=== PATIENT | female | born 1945 | race Caucasian/White ===

== ENCOUNTER 2016-12-05 16:04 | Inpatient (IN) ==
[2016-12-05] MEDS ORDERED: ZOFRAN ODT PO ONE (16:25)
[2016-12-05 16:35] LABS: MANUAL DIFF NEEDED? NO
[2016-12-05 16:40] LABS: BASO% 0.2 % (0.0-0.8); EOS# 0.05 X1000 (0.0-0.7); EOS% 0.4 % (0.0-10.0); HEMATOCRIT 40.7 % (37.0-47.0); HEMOGLOBIN 13.9 g/dL (12.0-16.0); IMM GRAN# 0.03 X1000 (0.0-0.04); IMM GRAN% 0.2 % (0.0-0.5); LYMPH# 2.99 X1000 (1.2-3.4); LYMPH% 23.7 % (20.5-51.1); MCH 28.1 PG (27-31); MCHC 34.2 g/dL (33-37); MCV 82.4 FL (81-99); MONO# 0.69 X1000 (0.11-0.59); MONO% 5.5 % (1.7-9.3); MPV 9.8 FL (7.4-10.4); PLT 339 X1000 (130-400); RBC 4.94 XMIL (4.2-5.4)
[2016-12-05 16:54] LABS: INR 1.05; PROTIME 11.1 Seconds (9.2-11.7); PTT 24.3 Seconds (22.0-36.0)
[2016-12-05 17:02] LABS: POTASSIUM 3.7 mmol/L (3.5-5.1); TOTAL BILIRUBIN 0.44 mg/dL (0.20-1.00); TOTAL PROTEIN 8.1 g/dL (6.3-8.3)
[2016-12-05] MEDS ORDERED: SODIUM CHLORIDE 0.9% INJ ONE (17:47)
[2016-12-05] MEDS ORDERED: NS 1,000 ML IV ONE (17:47)
[2016-12-05] MEDS ORDERED: PHENERGAN IV ONE (17:47)
--- NOTE | 2016-12-05 18:09 | PROVIDER DOCUMENTATION ---
This chart was entered by Angle Key Scribe, acting as scribe for Se Jimenez MD. HPI-General Adult - General Chief Complaint: Return/Recheck Stated Complaint: SENT BY MD FOR EKG Time Seen by Provider: 12/05/16 16:07 Source: patient Allergies/Adverse Reactions: Patient Allergies Allergy/AdvReac Type Severity Reaction Status Date / Time Penicillins Allergy Severe HIVES Verified 12/05/16 16:18 Home Medications: Home Medication List Medication Instructions Recorded Confirmed Last Taken Type Amlodipine Besylate [Amlodipine 1 tab PO DAILY 12/03/16 12/05/16 12/02/16 History Besylate] Atenolol [Atenolol] 1 tab PO DAILY 12/03/16 12/05/16 12/02/16 History Enalapril Maleate [Enalapril 1 tab PO DAILY 12/03/16 12/05/16 12/02/16 20:00 History Maleate] Fenofibrate [Tricor] 1 tab PO DAILY 12/03/16 12/05/16 12/02/16 History Levothyroxine [Synthroid] 1 tab PO DAILY 12/03/16 12/05/16 12/02/16 History Metformin HCl 1 tab PO BID 12/03/16 12/05/16 12/02/16 20:00 History Omeprazole [Prilosec] 20 mg PO DAILY #30 capsule 12/03/16 12/05/16 12/03/16 12: 00 Rx Ondansetron [Zofran Odt] 8 mg PO Q8H PRN #10 tab.rapdis 12/03/16 12/05/16 12:00 Rx Sucralfate [Carafate] 1 gm PO AC + HS #60 tablet 12/03/16 12/05/16 12/03/16 12: 00 Rx Tramadol [Ultram] 50 mg PO Q6H PRN PRN #20 tablet 12/03/16 12/05/16 12/03/16 12: 00 Rx - History of Present Illness -Gen Adult Nature of Presenting Problems: 71 y/o F presents to ED cc of nauseas and dry heaving x 1 week. Pt has not vomited since Friday. Pt was seen here on the and has discharged home to follow up with GI. Pt followed up with GI and Dr. Huntley sent to ED today to rule out cardiac. Dr. Huntley requested EKG and labs. Pt denies any SOB/CP. Pt is alert and in no distress. Location of Pain/Injury: reports: none Pain Radiation: reports: no radiation Quality of Pain: reports: none Severity: reports: mild Onset/Duration: reports: gradual (x 1 week) Timing: reports: still present Context/Activities at Onset: reports: light activity Modifying Factors: improves with: nothing Associated Symptoms: reports: nausea, vomiting (dry heaving). denies: arm pain , chest pain, cough, diarrhea, dizziness, fever/chills, muscle aches, seizure, shortness of breath, weakness Similar Symptoms Previously?: No Recently seen or treated by another doctor?: No Review of Systems - Adult - REVIEW OF SYSTEMS - ADULT Constitutional: denies: chills, fever Ears, Nose, Mouth & Throat: denies: ear pain, nose pain, loose teeth, throat pain Respiratory: denies: cough, pleurisy, shortness of breath, wheezing Gastrointestinal: reports: nausea, vomiting (dry heaving). denies: abdominal pain, diarrhea Genitourinary: denies: discharge, hematuria, hesitency, urgency Musculoskeletal: denies: bone pain, joint pain, joint swelling, neck pain Neurological: denies: dizziness/vertigo, headache/migraines, seizure, slurred speech Past History - Adult - PAST MEDICAL HISTORY-ADULT Review of Records: reports: Old Records Reviewed, Nursing Assessment Review Cardiovascular: reports: HTN, hyperlipidemia Neurological: reports: Seizures/Epilepsy Endocrine/Immune: reports: Diabetes - IMMUNIZATION STATUS Childhood Immunizations: See Nurse Assessment Flu Vaccine: See Nurse Assessment - SOCIAL HISTORY Smoking: denies, non-smoker Substance Use: none/never, denies Physical Exam-General - PHYSICAL EXAM-ADULT Initial Vital Signs Reviewed: Yes - CONSTITUTIONAL General Appearance: appears well, alert, no apparent distress - EYES Eyes: pink conjunctivae - HEAD, EARS, NOSE, MOUTH & THROAT HENMT: normocephalic/atraumatic, moist mucous membranes, normal ENT inspection - NECK Neck: non-tender, full range of motion, supple - RESPIRATORY Respiratory: chest non-tender, lungs clear, normal breath sounds - CARDIOVASCULAR Cardiovascular: normal peripheral pulses, tachycardia - GASTROINTESTINAL (ABDOMEN) Abdominal Exam: normal bowel sounds, non tender, soft - LYMPHATIC Lymphatic: no adenopathy - MUSCULOSKELETAL Back Exam: normal inspection, no CVA tenderness, no vertebral tenderness Extremity: normal range of motion, non-tender, normal gait - SKIN Integumentary: normal color, normal turgor, warm/dry - NEUROLOGIC Neurologic: grossly normal, no motor/sensory deficits - PSYCHIATRIC Psych/Mental Status: oriented x 3 Progress - PLAN OF CARE/RESULTS Progress/Plan/Lab Results: Vital Signs - 8 hr 12/05/16 16:12 Temperature 97.8 F Pulse Rate 93 H Respiratory Rate 20 Blood Pressure 161/78 O2 Sat by Pulse Oximetry 100 Orders Category Date Time Status CBC WITH ELECTRONIC DIFF [HEME] Stat Lab 12/05/16 16:21 Results CK PROFILE [SP CHEM] Stat Lab 12/05/16 16:21 Received COMPREHENSIVE METABOLIC PANEL [CHEM] Stat Lab 12/05/16 16:21 Received PROTIME WITH INR [COAG] Stat Lab 12/05/16 16:21 Received PTT [COAG] Stat Lab 12/05/16 16:21 Received TROPONIN T Stat Lab 12/05/16 16:21 Received TSH Stat Lab 12/05/16 16:21 Received Ondansetron Odt [Zofran Odt] Med 12/05/16 16:25 Discontinued 4 mg PO NOW ONE EKG [EKG] Stat Ther 12/05/16 16:07 Ordered [PLAN: EKG , LABS , TREAT NAUSEA REQUESTED LABS AND EKG . IF ALL NORMAL PT WILL BE SENT HOME WITH MEDICATIONS - CIPRO, ZOFRAN AND DIET Result Diagrams: 12/05/16 16:21 12/05/16 16:21 - REASSESSMENT Reassessment #1 Time Reassessed: 16:45 Status: unchanged (Pt is still dry heaving and nauseated. Aware of admission.) - CONSULTS/PCP/HOSPITALIST Notification #1 *Consult/PCP/Hospitalist*: (hospitalist) Time Discussed: 17:59 Consult Disposition: Admit #2 Consult: Dr. Huntley Time Discussed: 18:01 Consult Disposition: other (Requested follow up of results) Departure - Departure Date of Disposition Decision: 12/05/16 Time of Disposition Decision: 17:34 DIAGNOSIS: Renal insufficiency, Nausea, Leukocytosis Disposition: ADMITTED INPATIENT 09 Certified Medical Emergency: Emergent Condition: Good Additional Freetext Instructions: ED Follow Up Instructions: You have been treated by a care provider in the Emergency Department. These instructions are being provided to you so you can have an understanding of how to care for yourself upon discharge. Upon discharge from the Emergency Department, you are responsible for making arrangements for follow-up care by a physician of your choice. Take all prescribed medications as directed. Return to the Emergency Department immediately for any new or worsening symptoms. You may call the Physician Referral phone number at [phone] to obtain a list of Physicians who are taking new patients. Referrals and Follow-Ups: Inderjit Guerra MD [Primary Care Provider] - - Critical Care Note This patient required my direct & personal management of CC.: No This chart was documented by the indicated scribe, (Angle Key Scribe) and accurately reflects the services I performed and decisions made by me, Se Jimenez MD, as attested by the provider's signature.
--- NOTE | 2016-12-05 21:27 | HISTORY AND PHYSICAL ---
PRIMARY CARE PROVIDER: Dr. Inderjit Guerra. CHIEF COMPLAINT: Nausea and vomiting. HISTORY OF PRESENT ILLNESS: This is a 71-year-old female who presented to the emergency room after seeing Dr. Huntley from GI. She was apparently seen here for an EKG. She had been to the emergency room 3 times I believe in the last week for nausea and vomiting. She was sent to follow up with GI which she did and Dr. Huntley felt that the patient needed cardiac ruled out prior to having any type of endoscopy. She has had nausea, vomiting, dry heaving. She denies any type of chest pain, shortness of breath, palpitations. She does have a past medical history of hypothyroidism, hyperlipidemia, hypertension and diabetes mellitus type 2. Other than a continued complaint of nausea, vomiting, and dry heaving, the patient has no complaints at this time. She does not complain of chest pain, no abdominal pain. She will be admitted to the medical floor for further evaluation and treatment. PAST MEDICAL HISTORY: 1. Diabetes mellitus type 2. 2. Hyperlipidemia. 3. Hypertension. 4. Seizure disorder. 5. Hypothyroidism. PAST SURGICAL HISTORY: 1. Hysterectomy. 2. Neck surgery. 3. Oophorectomy. 4. Hemorrhoidectomy. SOCIAL HISTORY: Lives at home. Denies tobacco, alcohol or illicit drug use or abuse. She is . FAMILY HISTORY: Mother had coronary artery disease. at age 88. Father had hypertension. Also hypertension was noted in some siblings. ALLERGIC: Penicillin causing hives. HOME MEDICATIONS: 1. TriCor 1 tablet p.o. daily. 2. Ultram 50 mg p.o. q.6 p.r.n. 3. Enalapril 1 tablet p.o. daily. 4. Metformin 850 mg p.o. b.i.d. 5. Atenolol 50 mg p.o. daily. 6. Synthroid 75 mcg p.o. daily. 7. Amlodipine 1 tablet p.o. daily. 8. Carafate 1 g p.o. q.a.c. and at bedtime. 9. Prilosec 20 mg p.o. daily. 10. Zofran 8 mg p.o. q.8 p.r.n. REVIEW OF SYSTEMS: Fourteen point review of systems conducted with the patient. Pertinent positives listed above in the HPI. All other systems reviewed and found to be negative. PHYSICAL EXAMINATION: VITAL SIGNS: Temperature 97.8 degrees, pulse 93, respirations 20, blood pressure 161/78, oxygen saturation 100% on room air. GENERAL: A very pleasant 71-year-old female, lying in the ER stretcher. No acute distress. Answers all questions appropriately. HEENT: Head is atraumatic, normocephalic. Pupils equal, round, react to light. Extraocular eye movement intact. Sclerae is anicteric. Conjunctivae is pink. Oral mucosa is dry and tacky, lips are chapped. NECK: Supple. Trachea is midline. No JVD. No thyromegaly. CARDIAC: Regular rhythm, S1-S2 appreciated. No murmurs, gallops, rubs. LUNGS: Clear to auscultation bilaterally. No rhonchi, wheezes or rales. ABDOMEN: Soft, nondistended, nontender. Bowel sounds present in all 4 quadrants. Normoactive. No pulsatile mass. No organomegaly. EXTREMITIES: No clubbing, cyanosis, or edema. 2+ pedal pulses bilaterally. GENITOURINARY: The patient voids. Otherwise deferred. NEUROLOGICAL: Alert and oriented x3. Cranial nerves 2-12 grossly intact. SKIN: Warm dry and intact. No acute lesions or rash. DIAGNOSTIC DATA: EKG shows normal sinus rhythm. LABORATORY DATA: WBC 12.62, hemoglobin 13.9, hematocrit 40.7, platelet count 339,000. Coags within normal limits. Sodium 140. Potassium 3.7, chloride 96, carbon dioxide 23, BUN 28, creatinine 1.7, glucose 189. AST 39, ALT 26. ASSESSMENT AND PLAN: 1. Intractable nausea and vomiting. We will reconsult Dr. Huntley who sent the patient over for cardiac evaluation. The patient has mild elevations in liver functions. We will over right upper quadrant ultrasound. Patient still has her gallbladder. Other differentials to consider for nausea and vomiting are gastroparesis that the patient is a known diabetic. 2. Acute kidney injury. This is likely related to the patient's poor intake. We will hold her RACHELE inhibitor. Related elevated BUN and creatinine we will hold her Carafate for fear of aluminum toxicity. We will hold her Ultram as it is known to lower your seizure threshold and the patient is known to have a seizure disorder. 3. Hypothyroidism. Check thyroid stimulating hormones. Continue Synthroid. 4. Hyperlipidemia. Continue TriCor. 5. Cardiac, rule out. Trend cardiac enzymes. We will order EKG in a.m. We will order echocardiogram. We will consult Dr. Tolu brennan who is operational communication chief for Cardiology. 6. Hypertension. Continue Norvasc and atenolol. Further recommendations per patient clinical course. Dictated by ROHITH Montes De Oca for Jacob Kirby MD cc: ROHITH Montes De Oca MD Malcolm R. Hendricks, MD Khurshid Yousuf, MD
[2016-12-05] MEDS ORDERED: TYLENOL PO PRN (21:40)
[2016-12-05] MEDS: ZOFRAN IV PRN (22:05)
[2016-12-05] MEDS: TENORMIN PO SCH (22:05)
[2016-12-05 22:40] LABS: HEMOGLOBIN A1C 6.3 % (4.8-6.0)
[2016-12-06] MEDS: NORVASC PO SCH ×2 (01:24→09:18)
[2016-12-06] MEDS: TENORMIN PO SCH ×2 (01:24→09:18)
[2016-12-06] MEDS: PRILOSEC PO SCH ×2 (05:27→06:05)
[2016-12-06] MEDS: ZOFRAN IV PRN ×2 (05:27→20:13)
[2016-12-06] MEDS: SYNTHROID PO SCH ×2 (05:27→06:05)
--- NOTE | 2016-12-06 06:12 | EKG Report ---
Test Performed on : 12/06/2016 05:10:07 AM Test Reason : rhythm eval Blood Pressure : / mmHG Vent. Rate : 066 BPM Atrial Rate : 066 BPM P-R Int : 154 ms QRS Dur : 090 ms QT Int : 426 ms P-R-T Axes : 028 030 022 degrees QTc Int : 446 ms Normal sinus rhythm. Nonspecific T wave abnormality Abnormal ECG When compared with ECG of 05-DEC-2016 16:15, (Unconfirmed) No significant change was found Confirmed by Gideon Sewell MD ([id number]) on 12/06/2016 1:02:34 PM
[2016-12-06 06:37] LABS: MANUAL DIFF NEEDED? NO
[2016-12-06 06:40] LABS: BASO% 0.3 % (0.0-0.8); EOS# 0.19 X1000 (0.0-0.7); EOS% 1.9 % (0.0-10.0); HEMATOCRIT 40.8 % (37.0-47.0); HEMOGLOBIN 13.9 g/dL (12.0-16.0); IMM GRAN# 0.02 X1000 (0.0-0.04); IMM GRAN% 0.2 % (0.0-0.5); LYMPH# 3.49 X1000 (1.2-3.4); LYMPH% 34.8 % (20.5-51.1); MCHC 34.1 g/dL (33-37); MCV 82.3 FL (81-99); MONO# 0.75 X1000 (0.11-0.59); MONO% 7.5 % (1.7-9.3); MPV 9.7 FL (7.4-10.4); NEUT% 55.3 % (42.2-75.2); PLT 275 X1000 (130-400); RBC 4.96 XMIL (4.2-5.4)
[2016-12-06 08:08] LABS: CALCIUM 9.6 mg/dL (8.8-10.2); POTASSIUM 3.4 mmol/L (3.5-5.1)
[2016-12-06] MEDS: TRICOR PO SCH (09:18)
[2016-12-06] MEDS ORDERED: XYLOCAINE-MPF 2% ONE (10:07)
[2016-12-06] MEDS ORDERED: DIPRIVAN 1% ONE (10:07)
[2016-12-06] MEDS: ANTIVERT PO SCH ×2 (13:10→20:13)
[2016-12-06] MEDS ORDERED: NS 1,000 ML IV SCH (13:24)
[2016-12-06 13:38] LABS: AMYLASE 41 U/L (20-200); LIPASE 26 U/L (13-60)
[2016-12-06] MEDS: 1/2 NS 1,000 ML IV SCH (13:55)
--- NOTE | 2016-12-06 14:30 | PROGRESS NOTE ---
DATE: 12/06/2016 SUBJECTIVE: Patient states that she feels better. She denies any chest pain, shortness of breath, palpitations. Denies any abdominal pain. States that she has had one episode of nausea in the last 24 hours. No active vomiting. She also reports that she ate her lunch tray of liquid diet and has felt fine since she ate. OBJECTIVE: Vital Signs: Blood pressure 141/69, heart rate 71, respiratory 17. She is afebrile at 98.4, O2 site 96% on room air. General Appearance: Ms. Humphrey is a 71-year-old , female, who appears well nourished and is able to answer questions appropriately. Neuro: She is alert and oriented x4. No deficits there. CV: S1, S2 auscultated. Rate and regular rhythm. No murmurs, gallops noted. Pulmonary: Lung sounds equal and clear throughout with equal chest excursion. No wheezes, rhonchi, or crackles noted. GI: Active bowel sounds in all 4 quadrants. Patient's right lower quadrant pain was noted upon palpation. Extremities: +2 pedal and radial pulses throughout. No edema, bruises, rashes noted. LABORATORY DATA: White count 10, hemoglobin 13, hematocrit 40, platelets 275, 000. Sodium 143, potassium 3.4, chloride 101, bicarb 27. BUN 24, creatinine 1.4 and glucose 105. ASSESSMENT AND PLAN: 1. Nausea and vomiting. The patient reports she only had one nausea episode in the last 24 hours. No active vomiting. We have ordered amylase and lipase and abdomen/ pelvic CT scan. Continue IV Zofran 4 mg p.r.n. We have also ordered half-normal saline at 75 mL an hour. We have consulted GI. They will perform an EGD Friday. They are awaiting the cardiology consult on the patient. 2. Acute kidney injury. Patient's BUN and creatinine are 24 and 1.4. We have ordered half- normal saline at 75 and also put in some urine studies with urinalysis. This is most likely due to her dehydration. 3. Hypothyroidism. TSH level is 3.4. We will continue her home Synthroid. 4. Hyperlipidemia. The patient states that she takes her Tricor at home and is followed by her primary doctor and that this has always been an issue. Her triglycerides are 412. Total cholesterol is 259 with LDL of 168 and HDL of 40. We will continue her TriCor. 5. Cardiac workup. The patient's EKG this morning showed normal sinus at 66 with a QTc of 426. We had consulted Cardiology. 6. Hypertension. Patient's blood pressure has ranged from 170s, and she is 141 systolically this morning. We are going to continue her home medications. 7. Deep Venous Prophylaxis. Continue SCD's. 8. Gastrointestinal Prophylaxis. Continue Prilosec. Dictated by ROHITH Wade for Manuel Sagastume MD cc: ROHITH Wade MD MTDD
--- NOTE | 2016-12-06 14:49 | Diag Imaging Result Doc PS360 ---
EXAM: ABDOMEN/PELVIS W/O CONTRAST HISTORY: abdominal pain; intractabel nausea/vomiting TECHNIQUE: Dose reduction protocol COMPARISON: None. FINDINGS: There is fatty infiltration of the liver. No focal hepatic abnormality identified on this noncontrasted exam. No calcified gallstones or adjacent inflammation. Normal spleen and adrenal glands. Normal noncontrasted pancreas. No renal stones. No hydronephrosis. No aortic aneurysm. Prominent atherosclerosis. No bowel obstruction. No inflammation about the cecum. No abscess. The uterus has been removed. The urinary bladder is not distended. No pelvic mass. No free air. IMPRESSION: 1.Prominent atherosclerosis 2.Fatty infiltration of the liver 3.No renal stones or hydronephrosis 4.No bowel obstruction 5.Hysterectomy Electronically signed by Raul Hoffman 12/06/2016 2:47 PM
--- NOTE | 2016-12-06 14:59 | CONSULTATION ---
DATE OF CONSULTATION: 12/06/2016 REASON FOR REFERRAL: Nausea and vomiting. HISTORY OF PRESENT ILLNESS: This is a 71-year-old, white female, who was in our office yesterday for onset of nausea and vomiting over the weekend. She had been to the emergency room for evaluation on 2 different visits and, other than a slightly elevated white blood cell count, everything was normal. She was treated symptomatically with Zofran and started on Prilosec but she continued to have symptoms. She denied fever or chills. No reported dysuria or hematuria. No reported hematemesis or coffee-ground emesis. She has had a poor appetite and has not been able to eat much and has not been able to keep much down. She has been tolerating some applesauce and crackers along with some rice. She denied significant abdominal pain or abdominal cramping. She had an ultrasound done that was negative. When she was seen in the office yesterday, there was concern that it could be cardiac in origin. She was recommended to have an EKG and cardiac enzymes and was sent to the emergency room for those tests. She ended up being admitted. She had acute kidney injury with elevated BUN and creatinine likely related to patient' s poor intake. Her RACHELE inhibitor and Carafate have been placed on hold. PAST MEDICAL HISTORY: Arthritis, diabetes, hypertension, hyperlipidemia, seizure disorder, hypothyroidism. PAST SURGICAL HISTORY: Hysterectomy, neck surgery, oophorectomy, hemorrhoidectomy. ALLERGIES: Penicillin causing hives. HOME MEDICATION: 1. Ultram 50 mg every 6 hours as needed. 2. Zofran 8 mg every 8 hours as needed. 3. Prilosec 20 mg daily. 4. Metformin 1 tablets twice a day. 5. Synthroid 1 tablet daily. 6. TriCor 1 tablet daily. 7. Enalapril 1 tablet daily. 8. Atenolol 1 tablet daily. 9. Amlodipine 1 tablet daily. 10. Carafate 1 g before meals and at night but that has been placed on hold. SOCIAL HISTORY: She lives at home. She denies tobacco, alcohol, or drug use. She is . FAMILY HISTORY: Mother had coronary artery disease and in her 80s. Father had hypertension. REVIEW OF SYSTEMS: Per HPI. PHYSICAL EXAMINATION: Vital Signs: Temperature 98.6 degrees, pulse 67, respirations 18, blood pressure 139/69. Generally, patient is awake, alert, in no acute distress. HEENT: Normocephalic, atraumatic. Pupils equal, round, reactive to light. Sclerae are nonicteric. Cardiovascular: Regular rate and rhythm. Respiratory: Lung sounds clear bilaterally. Abdomen: Soft, nontender. Positive bowel sounds. Extremities: No lower extremity edema noted. DIAGNOSTIC RESULTS: Laboratory: Hematology: White count 10.0, hemoglobin 13.9 , hematocrit 40.8, MCV 82.3, platelets 275,000. Coagulation ProTime 11.1, INR 1.05. PTT 24.3. Chemistry: Sodium 143, potassium 3.4, chloride 101, CO2 of 27. BUN 24, creatinine 1.4, glucose 105. Total bilirubin 0.44. AST 39, ALT 26, alkaline phosphatase 60. Triglycerides 412, cholesterol 259. TSH 3.40. Troponin was 0.010. Creatine kinase 152. ASSESSMENT AND PLAN: 1. Nausea and vomiting. 2. Questionable gastroenteritis. 3. History of Meniere's disease. 4. Diabetes. 5. Acute kidney injury, most likely related to her poor intake. She is receiving IV fluid resuscitation. We will repeat a CMP tomorrow. She does have a cardiology consultation. We have planned for a possible EGD today since she had been held n.p.o., but we will wait on cardiology clearance. This will be tentatively be scheduled for Friday. If she does get discharged over the weekend, we will follow up and proceed with esophagogastroduodenoscopy if needed as an out patient. I have discussed this plan with the patient and her family, and they voiced understanding. I have discussed this case with Dr. Huntley. Dictated by ROHITH Kowalski for Je Huntley MD cc: ROHITH Armstrong MD [facility]
[2016-12-06 15:20] LABS: URINE CULTURE NEEDED? NO; URINE MICRO REVIEW NEEDED? NO; URINE SOURCE CLEAN CATCH
[2016-12-06 15:29] LABS: BILIRUBIN URINE NEGATIVE (NEGATIVE); BLOOD URINE NEGATIVE (NEGATIVE); COLOR YELLOW; GLUCOSE URINE NEGATIVE (NEGATIVE); LEUKOCYTES URINE NEGATIVE (NEGATIVE); NITRITE URINE NEGATIVE (NEGATIVE); PH URINE 6.5; PROTEIN URINE NEGATIVE (NEGATIVE); SP GRAVITY URINE 1.011; TURBIDITY URINE CLEAR (CLEAR); UROBILINOGEN URINE NORMAL (NORMAL)
[2016-12-06 15:31] LABS: UR EPITHELIAL CELLS <10 /HPF (<10); URINE BACTERIA NEGATIVE /HPF; URINE RBC <10 /HPF (<10); URINE WBC <10 /HPF (<10)
--- NOTE | 2016-12-06 16:17 | CONSULTATION ---
DATE OF CONSULTATION: 12/06/2016 IMPRESSION: 1. Intractable nausea and vomiting with resultant dehydration precipitating hospitalization. 2. Mild coronary atherosclerosis by coronary angiography 7 years ago. 3. Mixed hyperlipidemia. 4. Type 2 diabetes mellitus. 5. Hypertension. RECOMMENDATIONS: 1. Patient stable from a cardiac standpoint for upper GI endoscopy which has been planned. 2. Once patient has improved from GI standpoint would consider addition of statin given the results of her most recent lipid profile. 3. Would also consider use of an angiotensin receptor blocking agent or angiotensin converting enzyme inhibitor for management of her blood pressure given that she is diabetic. HISTORY: This 71-year-old white female with past history of mild coronary atherosclerosis by coronary angiography 7 years ago, mixed hyperlipidemia, hypertension and type 2 diabetes mellitus was admitted with intractable nausea, vomiting, and dehydration. She has had at least a week long history of intractable nausea and frequent vomiting. She has visited emergency room several times and was ultimately hospitalized given failure of outpatient management to maintain hydration. She has had no chest pain. She has not started any new medications. She has had type 2 diabetes mellitus for about 3 years. She does not have peripheral neuropathy with her diabetes. PAST MEDICAL HISTORY: 1. Mild coronary atherosclerosis by coronary geography 7 years ago. 2. Hypertension. 3. Obesity. 4. Type 2 diabetes mellitus. 5. Mixed hyperlipidemia. 6. Hypothyroidism. 7. Seizure disorder. PAST SURGICAL HISTORY: Includes hysterectomy, unspecified neck surgery, oophorectomy and hemorrhoidectomy. ALLERGIES: She is allergic or intolerant to penicillin. MEDICATIONS: Prior to admission as listed. SOCIAL HISTORY: She does not smoke or use alcohol. FAMILY HISTORY: Negative for premature coronary disease. REVIEW OF SYSTEMS: Pulmonary: Negative. Gastrointestinal: Noteworthy for nausea and vomiting as noted in history of present illness. Constitutional: Negative for fever. Remainder review of systems negative/noncontributory with 14 total systems reviewed. PHYSICAL EXAM: General: This is an obese middle-aged female in no distress. Vital Signs: As recorded are stable. HEENT: Extraocular movements appear intact. Mucous membranes moist. Neck: Supple without jugular venous distention. No carotid bruits. Chest: Clear to auscultation. Cardiac Exam: Reveals a regular rate and rhythm without appreciable murmur or gallop. Abdomen: Soft, nontender. Bowel sounds normal. Extremities: Without edema. Neurologic Exam: Reveals her to be alert, fully oriented. Speech is fluent. She moves all 4 extremities equally well. Skin: Warm, dry. Psychiatric: Reveals her mood to be appropriate. DIAGNOSTIC DATA: ECG demonstrates sinus rhythm and nonspecific T-wave abnormality. cc: Hosea Valdes MD
--- NOTE | 2016-12-06 20:29 | ECHO REPORT ---
ORDER DATE: 12/06/2016 INTERPRETING PHYSICIAN: Dr. Motley REQUESTING PHYSICIAN: CLINICAL INDICATIONS: A 71-year-old male with diabetes mellitus, hypertension. M-MODE MEASUREMENTS: Right ventricle: 3.2 cm. Left ventricle end diastole: 3.3 cm. Left ventricle end systole: 2.1 cm. Posterior wall: 1.0 cm. Interventricular septum: 1.2 cm. Left atrium: 3.7 cm. Aortic root: 3.2 cm. SUMMARY OF 2-DIMENSIONAL IMAGING: The left ventricular function is normal. Ejection fraction 66%. No wall motion abnormality is noted. The chamber is not dilated. The right ventricle appears to be at the upper limits of normal. The aortic valve looks normal. Color flow mapping unremarkable. The pulmonic valve looks normal. Color flow mapping unremarkable. The tricuspid valve shows trace regurgitation. Pulmonary pressure is normal. The mitral valve looks normal with a mild degree of regurgitation. Pulse wave Doppler of mitral inflow shows reversal of the E and the A wave. Ratio is 0.7. Tissue Doppler of septal and lateral mitral annulus averages 3.5 cm per second. There is impaired left ventricular relaxation. Early diastolic dysfunction. There is no pericardial effusion, masses or thrombus. The pulmonary venous flow is normal. IMPRESSION: In summary, this study shows: 1. Normal left ventricular systolic function. 2. Early diastolic dysfunction with impaired left ventricular relaxation. 3. No evidence of any significant valvular abnormality. 4. Pulmonary pressure is normal. Clinical correlation recommended. cc: MD Michael Berry CRNP
[2016-12-07] MEDS: 1/2 NS 1,000 ML IV SCH ×2 (04:50→16:32)
[2016-12-07 06:08] LABS: MANUAL DIFF NEEDED? NO
[2016-12-07 06:22] LABS: BASO% 0.6 % (0.0-0.8); EOS# 0.27 X1000 (0.0-0.7); EOS% 2.9 % (0.0-10.0); HEMOGLOBIN 13.9 g/dL (12.0-16.0); LYMPH# 3.84 X1000 (1.2-3.4); MCH 28.5 PG (27-31); MCHC 34.8 g/dL (33-37); MONO# 0.81 X1000 (0.11-0.59); MONO% 8.6 % (1.7-9.3); MPV 10.6 FL (7.4-10.4); NEUT% 46.9 % (42.2-75.2); PLT 235 X1000 (130-400); RBC 4.88 XMIL (4.2-5.4)
[2016-12-07] MEDS: PRILOSEC PO SCH (06:35)
[2016-12-07] MEDS: SYNTHROID PO SCH (06:36)
[2016-12-07 06:37] LABS: ALBUMIN 4.4 g/dL (3.5-5.0); CALCIUM 9.5 mg/dL (8.8-10.2); POTASSIUM 3.5 mmol/L (3.5-5.1); TOTAL BILIRUBIN 0.53 mg/dL (0.20-1.00); TOTAL PROTEIN 6.9 g/dL (6.3-8.3)
[2016-12-07] MEDS: ZOFRAN IV PRN (10:10)
[2016-12-07] MEDS: ANTIVERT PO SCH ×3 (10:13→16:33)
[2016-12-07] MEDS: TRICOR PO SCH (10:13)
[2016-12-07] MEDS: NORVASC PO SCH (10:13)
[2016-12-07] MEDS: TENORMIN PO SCH (10:13)
[2016-12-07] MEDS: PRINIVIL PO SCH (13:19)
--- NOTE | 2016-12-07 14:09 | PROGRESS NOTE ---
DATE: 12/07/2016 SUBJECTIVE: Patient reports feeling fine, less nauseated and she wants to advance the diet. Currently she is on clear liquid diet. OBJECTIVE: Vital Signs: Temperature 97.7 degrees, heart rate 67, respiratory rate 20, blood pressure 163/75, O2 saturation 96% on room air. General Examination: This is a 71-year-old female lying in bed in no acute distress. HEENT: Head is normocephalic, atraumatic. Anicteric sclerae and pale conjunctivae. Mucous membranes moist. Neck: Supple. No JVD noted. No carotid bruits. No lymphadenopathy. No thyromegaly. Cardiovascular: S1, S2 heard. No murmurs, gallops, or rubs. Regular rate and rhythm. Respiratory: Clear bilaterally to auscultation. No work of breathing or using accessory muscles. Abdomen: Soft , a little bit tender to palpation in the right lower quadrant. No signs of peritoneal irritation. Bowel sounds present. No organomegaly. Extremities: No clubbing, cyanosis or edema. Peripheral pulses present in both legs. Neurological: Patient alert, oriented x3. Moves 4 extremities. Cranial nerves 2-12 grossly normal. LABORATORY DATA: The CBC is unremarkable and BMP shows creatinine 1.3. ASSESSMENT AND PLAN: 1. Intractable nausea and vomiting. That condition is resolved. Patient is feeling less nauseated and she was tolerating the liquid diet very well so she requests to have her diet increased so we are going to change it to GI soft diet. The CT of abdomen and pelvis did not show any grossly remarkable. Just fatty liver so at this point we are going to continue with same management. For this condition GI has evaluated this patient and they are going to perform EGD on Friday for this persistent nausea and epigastric pain. Dr. Huntley think that she may have a cardiac component so cardiology was consulted and they have cleared this patient so she is good to have endoscopy on Friday, no more recommendations from their standpoint. 2. Acute kidney injury. Creatinine continues to improve so at this point we are going to continue with IV fluids. 3. Hypothyroidism stable. Will continue with Synthroid. 4. Hyperlipidemia. We are going to continue with TriCor. 5. Hypertension. Blood pressure has been in the range of 150 and 163. She is on amlodipine 5, atenolol 50, on lisinopril 10 so I am going to increase the doses of lisinopril to 10 mg p.o. b.i.d. 6. Deep vein thrombosis prophylaxis with SCDs. 7. Gastrointestinal prophylaxis with Protonix. cc: Manuel Sagastume MD MTDD
[2016-12-08] MEDS: PRILOSEC PO SCH (06:14)
[2016-12-08] MEDS: 1/2 NS 1,000 ML IV SCH ×3 (06:14→18:16)
[2016-12-08] MEDS: SYNTHROID PO SCH (06:14)
[2016-12-08 06:51] LABS: MANUAL DIFF NEEDED? NO
[2016-12-08 06:55] LABS: BASO% 0.9 % (0.0-0.8); EOS# 0.26 X1000 (0.0-0.7); EOS% 2.8 % (0.0-10.0); HEMATOCRIT 38.1 % (37.0-47.0); HEMOGLOBIN 13.2 g/dL (12.0-16.0); LYMPH# 4.36 X1000 (1.2-3.4); LYMPH% 47.3 % (20.5-51.1); MCH 28.3 PG (27-31); MCHC 34.6 g/dL (33-37); MCV 81.6 FL (81-99); MONO# 0.67 X1000 (0.11-0.59); MONO% 7.3 % (1.7-9.3); MPV 10.3 FL (7.4-10.4); NEUT% 41.7 % (42.2-75.2); PLT 250 X1000 (130-400); RBC 4.67 XMIL (4.2-5.4)
[2016-12-08 07:14] LABS: CALCIUM 9.1 mg/dL (8.8-10.2); POTASSIUM 3.2 mmol/L (3.5-5.1); TOTAL BILIRUBIN 0.37 mg/dL (0.20-1.00); TOTAL PROTEIN 6.5 g/dL (6.3-8.3)
[2016-12-08] MEDS: TENORMIN PO SCH (09:13)
[2016-12-08] MEDS: PRINIVIL PO SCH (09:13)
[2016-12-08] MEDS: NORVASC PO SCH (09:13)
[2016-12-08] MEDS: ANTIVERT PO SCH ×3 (09:13→16:33)
[2016-12-08] MEDS: TRICOR PO SCH (09:13)
--- NOTE | 2016-12-08 13:00 | PROGRESS NOTE ---
DATE: 12/08/2016 SUBJECTIVE: Patient reports feeling fine. Tolerating GI soft diet very well. Not feeling nauseated anymore. OBJECTIVE: Vital Signs: Temperature 98.2 degrees, heart rate 66, respiratory 14, blood pressure 142/70. O2 saturation 98% on room air. General Examination: This is a 71-year-old female lying in bed, in no acute distress. HEENT: Head is normocephalic, atraumatic. Anicteric sclerae and pale conjunctivae. Mucous membranes moist. Neck: Supple. No JVD noted. No carotid bruits. No lymphadenopathy. No thyromegaly. Cardiovascular: S1, S2 heard. No murmurs, gallops or rubs. Regular rate and rhythm. Respiratory: Clear bilaterally to auscultation. No work of breathing or using accessory muscles. Abdomen: Soft, a little bit tender to palpation in the right upper quadrant but there are no signs of peritoneal irritation. Normal bowel sounds present. No organomegaly. Extremities: No clubbing, cyanosis, or edema. Peripheral pulses present in both legs. Neurologic: Grossly normal. LABORATORY DATA: The CBC and BMP is unremarkable. Creatinine 1.5 and potassium 3.2. ASSESSMENT AND PLAN: 1. Intractable nausea and vomiting. That condition is almost resolved. Patient is tolerating GI soft diet. CT of the abdomen was unremarkable except fatty liver. GI is planning to do a colonoscopy on Friday. We will follow his recommendations. 2. For possible cardiac component of this epigastric pain, Cardiology was consulted, who has cleared this patient to get esophagogastroduodenoscopy. 3. Acute kidney injury. Although this patient is on IV fluids the creatinine remains still the around the same #1.5. 4. Hypothyroidism is stable. 5. Hyperlipidemia. We will continue with TriCor. 6. Hypertension. Blood pressure is some better controlled today, because we have increased the dose of lisinopril from 10 daily to twice daily. cc: Manuel Sagastume MD
[2016-12-09] MEDS: 1/2 NS 1,000 ML IV SCH (04:36)
[2016-12-09] MEDS: PRILOSEC PO SCH (06:05)
[2016-12-09] MEDS: SYNTHROID PO SCH (06:06)
[2016-12-09 06:08] LABS: MANUAL DIFF NEEDED? NO
[2016-12-09 06:18] LABS: BASO% 0.7 % (0.0-0.8); EOS# 0.34 X1000 (0.0-0.7); EOS% 3.7 % (0.0-10.0); HEMATOCRIT 36.2 % (37.0-47.0); HEMOGLOBIN 12.5 g/dL (12.0-16.0); IMM GRAN# 0.02 X1000 (0.0-0.04); IMM GRAN% 0.2 % (0.0-0.5); LYMPH# 3.82 X1000 (1.2-3.4); LYMPH% 41.8 % (20.5-51.1); MCH 28.3 PG (27-31); MCHC 34.5 g/dL (33-37); MCV 81.9 FL (81-99); MONO# 0.71 X1000 (0.11-0.59); MONO% 7.8 % (1.7-9.3); MPV 10.2 FL (7.4-10.4); NEUT% 45.8 % (42.2-75.2); PLT 226 X1000 (130-400); RBC 4.42 XMIL (4.2-5.4)
[2016-12-09 06:38] LABS: CALCIUM 8.8 mg/dL (8.8-10.2); POTASSIUM 3.5 mmol/L (3.5-5.1); TOTAL BILIRUBIN 0.37 mg/dL (0.20-1.00); TOTAL PROTEIN 6.5 g/dL (6.3-8.3)
[2016-12-09] MEDS: TENORMIN PO SCH ×2 (07:40→08:08)
[2016-12-09] MEDS ORDERED: DIPRIVAN 1% ONE (12:15)
[2016-12-09] MEDS ORDERED: XYLOCAINE-MPF 2% ONE (12:15)
[2016-12-09 13:21] VITALS: BP 156/70
[2016-12-09] MEDS: ANTIVERT PO SCH ×2 (14:08→14:38)
[2016-12-09] MEDS: PRINIVIL PO SCH (14:38)
[2016-12-09] MEDS: TRICOR PO SCH (14:38)
[2016-12-09] MEDS: NORVASC PO SCH (14:38)
--- NOTE | 2016-12-10 04:42 | OPERATIVE NOTE ---
PROCEDURE DATE: 12/09/2016 PROCEDURE: Esophagogastroduodenoscopy and biopsy. PREOPERATIVE DIAGNOSIS: Abdominal pain, nausea and vomiting. POSTOPERATIVE DIAGNOSES: 1. Mild esophagitis 2. Gastric ulcer. MEDICATIONS USED: MAC as per Anesthesia. SCOPE: Olympus [id number]. HISTORY: This is a 71-year-old white female, who was admitted to hospital after she had presented with persistent nausea and vomiting unresponsive to treatment. She was complaining of some epigastric discomfort as well. EGD was done to identify the etiology and treat accordingly. DESCRIPTION OF PROCEDURE: Informed consent obtained from the patient. The procedure, risks, benefits, alternatives were explained in layman's terms. She understood. All the pertinent questions answered. Patient was brought to the endoscopy unit and was premedicated as per Anesthesia. After adequate sedation, while she was lying in left lateral position, the gastroscope was introduced into the posterior pharynx and advanced under direct vision into the esophagus. Esophagus in the upper middle part was normal. Distal esophagus close to the GE junction which was noted at about 39 cm from the incisor, showed evidence of mild esophagitis without any stricture. Did not have any no webs, rings or varices. The scope was then passed through the esophagus into the stomach. Stomach was examined on both straight and retroflexed view, which revealed normal cardia, fundus, and body. In the antrum, however, there was a clean based, punched-out ulcer seen in the antrum around 3 to 4 o'clock position. The ulcer was again clean based, punched-out without any stigmata of recent bleed. Multiple biopsies were obtained from the ulcer edges using cold biopsy forceps. The scope was then passed through the normal pylorus, into the duodenal bulb, and then 2nd part duodenum. Both appeared to be normal. The scope was then removed. Patient tolerated procedure well. No complications noted. Patient was then transferred to the recovery area in a stable condition. IMPRESSION: 1. Gastric ulcer, biopsied. 2. Mild esophagitis. RECOMMENDATION: The patient will be started on proton pump inhibitor, Prilosec 40 mg every day. We will follow up the biopsy report. If H pylori is positive, we will treat. In the meantime, I recommended to avoid any NSAIDs if possible. Follow up the biopsy report in a couple weeks by calling the office and follow up with me in the office in 6-8 weeks. She will need surveillance EGD in 3-4 months to confirm healing of the gastric ulcer. I have explained my finding and plan to the patient's sister. She understood. Pertinent questions answered. cc: Je Huntley MD
[2016-12-10] MEDS ORDERED: PROTONIX PO SCH (07:00)
--- NOTE | 2016-12-10 13:19 | DISCHARGE SUMMARY ---
ADMISSION DATE: 12/05/2016 DISCHARGE DATE: 12/09/2016 CONSULTATIONS: 1. Dr. Huntley with Gastroenterology. 2. Dr. Hosea Valdes with Cardiology. PERTINENT PROCEDURES: 1. Abdomen and pelvis CT showed prominent atherosclerosis, fatty infiltration of the liver. No renal stones or hydronephrosis. No bowel obstruction. Hysterectomy. 2. EGD performed by Dr. Huntley on 12/09/2016. DISCHARGE DIAGNOSES: 1. Intractable nausea, vomiting. Condition has resolved. She is tolerating a diet. CT of the abdomen was unremarkable. Patient did undergo an EGD and colonoscopy by Dr. Huntley. His recommendation is for discharge home and follow up according to his instructions. 2. Possible cardiac component of epigastric pain. Cardiology was consulted and cleared the patient for an EGD. 3. Acute kidney injury. Stable. 4. Hypothyroidism. Stable. 5. Hyperlipidemia. Continue Tricor. 6. Hypertension. Improved. HOSPITAL COURSE: Briefly, Ms. Humphrey is a 71-year-old female who carries a past medical history of diabetes mellitus type 2, hyperlipidemia, hypertension, seizure disorder, and hypothyroidism, who presented to the ED after seeing Dr. Huntley from GI. She had been to the emergency room 3 times in the last week for nausea and vomiting and sent to follow up with Gastroenterology, which she did, and Dr. Huntley felt that the patient needed cardiac ruled out prior to having endoscopy. She has had nausea, vomiting, and dry heaving. Denied any type of chest pain, shortness of breath, or palpitations. The patient was admitted for intractable nausea and vomiting, consulted Dr. Huntley as well as Cardiology. She was also shown to have an acute kidney injury. Her RACHELE inhibitor was initially held. Cardiology cleared the patient for her GI workup with medication adjustments. She did undergo her EGD with Dr. Huntley today and he has cleared the patient for discharge home. VITAL SIGNS AT TIME OF DISCHARGE: Temperature is 97.5 degrees, heart rate 61, respirations 18, blood pressure 156/70, and O2 is 100% on room air. DISCHARGE DIET: Full liquid, advance as tolerated. DISCHARGE MEDICATIONS: 1. Norvasc 10 mg p.o. daily. 2. Atenolol 50 mg p.o. daily. 3. Tricor 145 mg p.o. daily. 4. Synthroid 75 mcg p.o. daily. 5. Prinivil 10 mg p.o. daily. 6. Metformin 850 mg p.o. b.i.d. 7. Zofran ODT 8 mg p.o. q.8 hours p.r.n. 8. Protonix 40 mg p.o. daily. 9. Carafate 1 g p.o. before meals and at bedtime. 10. Ultram 50 mg p.o. q.6 hours p.r.n. FOLLOWUP: Patient is being discharged home. She can follow up with Dr. Huntley as indicated as well as cardiology and her primary care physician, Dr. Inderjit Guerra. The patient will return to the ED for any worsening of symptoms. DISCHARGE TIME: Thirty three minutes. Dictated by ROHITH Vance for Manuel Sagastume MD cc: MD Inderjit Key MD MTDD
== END 2016-12-09 16:04 | disposition home or self-care (01) ==
LOC: ED 16:04 → SUATTDRO 20:48 → 3N 20:48
PROVIDERS: ATTEND Internal Medicine